=== PATIENT | male | born 1945 | race Caucasian/White ===

== ENCOUNTER 2021-08-05 07:24 | Inpatient (IN) | payer MEDICARE ==
[2021-08-05] MEDS ORDERED: Cefepime 2 GM VIAL ONE (07:56)
[2021-08-05] MEDS ORDERED: Ondansetron PF 4 MG/2 ML Vial ONE (07:59)
[2021-08-05 08:12] LABS: #Basophils 0.1 thou/uL (0.0-0.2); #Eosinphils 0.1 thou/uL (0.0-0.7); #Lymphocytes 1.7 thou/uL (1.20-3.40); #Monocytes 2.1 thou/uL (0.11-0.59); #Neutrophils 14.7 thou/uL (1.40-6.50); %Basophils 0.4 % (0.0-1.0); %Eosinophils 0.7 % (0.0-10.0); %Lymphocytes 9.1 % (21.0-51.0); %Neutrophils 78.9 % (42.0-75.0); Hemoglobin 16.1 g/dL (14.0-18.0); Mean Corpuscular HGB CONC 30.9 g/dL (32.0-36.0); Mean Platelet Volume 8.8 fL (7.4-10.4); Platelet Count 420 thou/uL (130-400); Red Blood Cell (RBC) Count 5.22 mill/uL (4.70-6.10); White Blood Cell (WBC) Count 18.6 thou/uL (4.8-10.8)
[2021-08-05 08:35] LABS: INR-International Normal Ratio 1.4; PTT 28.7 sec (22.9-36.1); Prothrombin Time 16.9 sec (12.0-14.7)
[2021-08-05 08:39] LABS: ALT (SGPT) 10 U/L (8-55); AST (SGOT) 18 U/L (5-34); Albumin 3.5 g/dL (3.4-4.8); Alkaline Phosphatase 135 U/L (40-110); BUN (Urea Nitrogen) 27 mg/dL (8.4-25.7); Bilirubin, Total 0.2 mg/dL (0.2-1.2); Calc. Creatinine Clearance 0 mL/min (70-130); Calcium 9.9 mg/dL (7.8-10.44); Carbon Dioxide Less than 8 mmol/L (23-31); Chloride 95 mmol/L (98-107); Glucose 915 mg/dL (83-110); Lipase 33 U/L (8-78); Magnesium 2.7 mg/dL (1.6-2.6); Protein, Total 7.5 g/dL (5.8-8.1); Sodium 129 mmol/L (136-145)
[2021-08-05 09:01] LABS: CKMB 13.2 ng/mL (0-6.6)
[2021-08-05 09:02] LABS: Analyzer IN Cardio ER; Calcium, Ionized (venous) 1.23 mmol/L (1.16-1.32); Chloride (VBG) 99 mmol/L (98-106); Hemoglobin (Hb) 16.4 g/dL (12.6-17.4); Potassium (VBG) 5.47 mmol/L (3.70-5.30); Sodium 133.8 mmol/L (133-146)
[2021-08-05] MEDS ORDERED: Insulin Regular 300 UNITS/3 ML VIAL ONE (09:02)
[2021-08-05] MEDS ORDERED: INSULIN REGULAR IN 0.9 % NACL 100 UNIT/100 ML BAG ONE (09:02)
[2021-08-05] MEDS ORDERED: Vancomycin 1 GM/200 ML BAG ONE (09:02)
[2021-08-05 09:03] LABS: Actual Bicarbonate (HCO3v) 3 mEq/L (22-28); Base Excess -31.1 mEq/L (-2.0 to +3.0); pH (venous) 6.79 (7.32-7.43)
[2021-08-05 09:10] LABS: Bacteria/HPF None Seen HPF (None Seen); Bilirubin Negative (Negative); Blood, Urine 1+ (Negative); Clarity Clear (Clear); Glucose, Urine (Dipstick) Greater than 1000 mg/dL (Negative); Ketone, Urine Greater than 150 mg/dL (Negative); Leukocyte Negative Leu/uL (Negative); Nitrite Negative (Negative); Protein, Urine (Dipstick) 30 mg/dL (Neg-Trace); RBC/HPF None Seen HPF (0-3); Specific Gravity, Urine 1.024 (1.002-1.036); Squamous Epithelial None Seen HPF (0-3); Urobilinogen Normal mg/dL (Less than 2); WBC/HPF 0-3 HPF (0-3); pH, Urine 5.5 (5.0-9.0)
[2021-08-05] MEDS ORDERED: Sodium Bicarb 50 MEQ/50 ML Abboject 8.4% SYRINGE ONE (09:13)
[2021-08-05 10:00] LABS: SARS-CoV-2 NAA Rapid Test Not Detected (NotDetected)
[2021-08-05] MEDS ORDERED: Sodium Bicarbonate 150 MEQ in Sterile Water Injection 1,000 ML IV SCH ×2 (11:00→19:00)
[2021-08-05 11:14] LABS: Lactic Acid 3.4 mmol/L (0.5-2.2)
[2021-08-05] MEDS ORDERED: Dextrose 5% in Water 1,000 ML IV PRN (11:30)
[2021-08-05] MEDS ORDERED: NS 0.9% w/ 20 MEQ KCL 1,000 ML/1,000 ML BAG IV PRN (11:30)
[2021-08-05] MEDS ORDERED: Sodium Chloride 0.9% 1,000 ML IV PRN ×4 (11:30)
[2021-08-05] MEDS ORDERED: Insulin Regular 300 UNITS/3 ML VIAL IVP SCH (11:30)
[2021-08-05] MEDS ORDERED: Dextrose 5 %-0.45 % NaCl 1,000 ML IV PRN (11:30)
[2021-08-05] MEDS ORDERED: Dextrose 50% Abboject 50 ML SYRINGE SLOW IVP PRN (11:30)
[2021-08-05] MEDS ORDERED: HUMULIN R 100 UNITS in Sodium Chloride 0.9% 99 ML IVPB SCH (11:30)
[2021-08-05] MEDS ORDERED: D5 1/2 NS w/20 mEq KCL 1,000 ML IV PRN (11:30)
[2021-08-05 13:47] LABS: Magnesium 2.6 mg/dL (1.6-2.6); Phosphorus 8.8 mg/dL (2.3-4.7)
[2021-08-05] MEDS: Sodium Chloride 0.9% 1,000 ML IV SCH ×2 (13:59→19:14)
[2021-08-05 14:23] LABS: BUN (Urea Nitrogen) 30 mg/dL (8.4-25.7); Calc. Creatinine Clearance 0 mL/min (70-130); Calcium 10.2 mg/dL (7.8-10.44); Chloride 103 mmol/L (98-107); Sodium 137 mmol/L (136-145)
[2021-08-05 14:52] LABS: Carbon Dioxide Less than 8 mmol/L (23-31); Glucose 885 mg/dL (83-110)
[2021-08-05 16:13] LABS: BUN (Urea Nitrogen) 33 mg/dL (8.4-25.7); Calc. Creatinine Clearance 42 mL/min (70-130); Chloride 103 mmol/L (98-107); Potassium 3.9 mmol/L (3.5-5.1); Sodium 137 mmol/L (136-145)
[2021-08-05] MEDS: NS 0.9% w/ 20 MEQ KCL 1,000 ML/1,000 ML BAG IV PRN ×2 (16:25→21:53)
[2021-08-05 16:39] LABS: CKMB 27.9 ng/mL (0-6.6)
[2021-08-05] MEDS ORDERED: Enoxaparin Sodium 40 MG/0.4 ML SYRINGE SC SCH (16:45)
[2021-08-05] MEDS ORDERED: Aspirin 300 MG Suppository PR SCH (16:45)
[2021-08-05] MEDS ORDERED: Pantoprazole 40 MG VIAL IVP SCH (17:00)
[2021-08-05 17:13] LABS: Carbon Dioxide Less than 8 mmol/L (23-31); Glucose 715 mg/dL (83-110)
[2021-08-05 18:38] LABS: Anion Gap 29 mmol/L (10-20); BUN (Urea Nitrogen) 33 mg/dL (8.4-25.7); Calc. Creatinine Clearance 43 mL/min (70-130); Calcium 8.9 mg/dL (7.8-10.44); Chloride 106 mmol/L (98-107); Potassium 3.5 mmol/L (3.5-5.1); Sodium 139 mmol/L (136-145)
[2021-08-05 18:44] LABS: Carbon Dioxide 8 mmol/L (23-31); Glucose 579 mg/dL (83-110)
[2021-08-05 19:08] LABS: Actual Bicarbonate (HCO3a) 7.2 mEq/L (22-28); Base Excess (BEa) -17.7 mEq/L (-2.0 to +3.0); Calcium, Ionized (arterial) 1.35 mmol/L (1.12-1.30); Carboxyhemoglobin (COHb) 0.1 gm% (0.0-3.0); O2 Tension (PaO2), arterial 93.8 mmHg (> 70.0); Potassium - ABG Lab 3.51 mmol/L (3.70-5.30)
[2021-08-05 19:09] LABS: pH, Arterial 7.24 (7.35-7.45)
[2021-08-05 19:10] LABS: ALV-art Gradient 34.555 mmHg (0-20); CO2 Tension 17.1 mmHg (35.0-45.0); Puncture Site RRA
[2021-08-05] MEDS ORDERED: Sodium Chloride 0.9% 1,000 ML IV SCH (19:30)
[2021-08-05 20:30] LABS: Anion Gap 20 mmol/L (10-20); BUN (Urea Nitrogen) 33 mg/dL (8.4-25.7); Calc. Creatinine Clearance 45 mL/min (70-130); Calcium 9.1 mg/dL (7.8-10.44); Carbon Dioxide 11 mmol/L (23-31); Chloride 111 mmol/L (98-107); Glucose 467 mg/dL (83-110); Potassium 3.4 mmol/L (3.5-5.1); Sodium 139 mmol/L (136-145)
[2021-08-05] MEDS ORDERED: Ondansetron PF 4 MG/2 ML Vial IVP PRN (21:09)
[2021-08-05] MEDS ORDERED: Acetaminophen 325 MG TAB PO PRN (21:09)
[2021-08-06 01:31] LABS: Anion Gap 13 mmol/L (10-20); BUN (Urea Nitrogen) 34 mg/dL (8.4-25.7); Calc. Creatinine Clearance 52 mL/min (70-130); Calcium 9.3 mg/dL (7.8-10.44); Carbon Dioxide 15 mmol/L (23-31); Chloride 116 mmol/L (98-107); Glucose 260 mg/dL (83-110); Potassium 3.2 mmol/L (3.5-5.1); Sodium 141 mmol/L (136-145)
[2021-08-06] MEDS ORDERED: Potassium Chloride 20 MEQ TAB PO SCH (02:30)
[2021-08-06] MEDS: Potassium Chloride 10 MEQ in Premix Bag 1 BAG IVPB SCH ×4 (02:34→05:13)
[2021-08-06] MEDS ORDERED: Sodium Bicarbonate 150 MEQ in Sterile Water Injection 1,000 ML IV PRN (05:00)
[2021-08-06 05:02] LABS: Anion Gap 15 mmol/L (10-20); BUN (Urea Nitrogen) 32 mg/dL (8.4-25.7); Calc. Creatinine Clearance 58 mL/min (70-130); Calcium 8.9 mg/dL (7.8-10.44); Carbon Dioxide 13 mmol/L (23-31); Chloride 116 mmol/L (98-107); Glucose 283 mg/dL (83-110); Potassium 3.7 mmol/L (3.5-5.1); Sodium 140 mmol/L (136-145)
[2021-08-06 05:40] LABS: Anion Gap 15 mmol/L (10-20); BUN (Urea Nitrogen) 32 mg/dL (8.4-25.7); Calc. Creatinine Clearance 58 mL/min (70-130); Calcium 9.1 mg/dL (7.8-10.44); Carbon Dioxide 14 mmol/L (23-31); Chloride 116 mmol/L (98-107); Glucose 335 mg/dL (83-110); Potassium 3.8 mmol/L (3.5-5.1); Sodium 141 mmol/L (136-145)
[2021-08-06] MEDS: NS 0.9% w/ 20 MEQ KCL 1,000 ML IV SCH ×3 (06:00→19:20)
[2021-08-06 07:07] LABS: Actual Bicarbonate (HCO3a) 8.8 mEq/L (22-28); Base Excess (BEa) -17.4 mEq/L (-2.0 to +3.0); Calcium, Ionized (arterial) 1.38 mmol/L (1.12-1.30); Carboxyhemoglobin (COHb) 0.4 gm% (0.0-3.0); Hemoglobin (Hb) 15.4 g/dL (14.0-18.0); O2 Tension (PaO2), arterial 84.2 mmHg (> 70.0); Potassium - ABG Lab 4.33 mmol/L (3.70-5.30)
[2021-08-06 07:59] LABS: pH, Arterial 7.19 (7.35-7.45)
[2021-08-06 08:00] LABS: ALV-art Gradient 36.405 mmHg (0-20); CO2 Tension 23.3 mmHg (35.0-45.0); Puncture Site LBA
[2021-08-06] MEDS ORDERED: FLU VACC QS2021-22(65YR UP)/PF 240 MCG/0.7 ML SYRINGE IM ONE (09:00)
[2021-08-06] MEDS ORDERED: Magnesium 2 GM/50 ML 2 GM in Premix Bag 1 BAG IVPB SCH (09:15)
[2021-08-06] MEDS ORDERED: D5 1/2 NS w/20 mEq KCL 1,000 ML IV PRN (09:45)
[2021-08-06] MEDS ORDERED: ADD ELECTROLYTE REPLACEMENT SET TO PROFILE FS SCH (09:45)
[2021-08-06] MEDS ORDERED: Dextrose 50% Abboject 50 ML SYRINGE SLOW IVP PRN (09:45)
[2021-08-06] MEDS ORDERED: Dextrose 5 %-0.45 % NaCl 1,000 ML IV PRN (09:45)
[2021-08-06] MEDS ORDERED: Dextrose 5% in Water 1,000 ML IV PRN (09:45)
[2021-08-06] MEDS: Enoxaparin Sodium 40 MG/0.4 ML SYRINGE SC SCH (10:47)
[2021-08-06] MEDS: Pantoprazole 40 MG VIAL IVP SCH (10:47)
[2021-08-06 12:07] LABS: Anion Gap 20 mmol/L (10-20); BUN (Urea Nitrogen) 31 mg/dL (8.4-25.7); Calc. Creatinine Clearance 54 mL/min (70-130); Calcium 9.7 mg/dL (7.8-10.44); Carbon Dioxide 10 mmol/L (23-31); Chloride 118 mmol/L (98-107); Glucose 406 mg/dL (83-110); Potassium 3.9 mmol/L (3.5-5.1); Sodium 144 mmol/L (136-145)
[2021-08-06] MEDS: HUMULIN R 100 UNITS in Sodium Chloride 0.9% 100 ML IVPB SCH (12:18)
[2021-08-06 12:21] LABS: Critical Call Chem Troponin I RESULT DECREASING; Troponin I 1.492 ng/mL (< 0.028)
[2021-08-06] MEDS: Sodium Bicarbonate 150 MEQ in Sterile Water Injection 1,000 ML IV PRN ×2 (12:45→20:35)
[2021-08-06 13:03] LABS: Potassium 3.9 mmol/L (3.5-5.1)
[2021-08-06] MEDS: Vancomycin HCl 750 MG in Sodium Chloride 0.9% 250 ML 250 ML IVPB SCH (13:28)
[2021-08-06 15:12] LABS: ALV-art Gradient 45.005 mmHg (0-20); Actual Bicarbonate (HCO3a) 11.9 mEq/L (22-28); Base Excess (BEa) -12.9 mEq/L (-2.0 to +3.0); CO2 Tension 25.3 mmHg (35.0-45.0); Calcium, Ionized (arterial) 1.37 mmol/L (1.12-1.30); Hemoglobin (Hb) 12.8 g/dL (14.0-18.0); O2 Tension (PaO2), arterial 73.1 mmHg (> 70.0); Potassium - ABG Lab 3.18 mmol/L (3.70-5.30); Puncture Site RRA; pH, Arterial 7.29 (7.35-7.45)
[2021-08-06 16:56] LABS: Anion Gap 17 mmol/L (10-20); BUN (Urea Nitrogen) 28 mg/dL (8.4-25.7); Calc. Creatinine Clearance 62 mL/min (70-130); Calcium 9.7 mg/dL (7.8-10.44); Carbon Dioxide 10 mmol/L (23-31); Chloride 122 mmol/L (98-107); Glucose 232 mg/dL (83-110); Potassium 3.7 mmol/L (3.5-5.1); Sodium 145 mmol/L (136-145)
[2021-08-06 19:22] LABS: Anion Gap 14 mmol/L (10-20); BUN (Urea Nitrogen) 26 mg/dL (8.4-25.7); Calc. Creatinine Clearance 71 mL/min (70-130); Carbon Dioxide 14 mmol/L (23-31); Chloride 123 mmol/L (98-107); Glucose 138 mg/dL (83-110); Potassium 3.9 mmol/L (3.5-5.1); Sodium 147 mmol/L (136-145)
[2021-08-06] MEDS ORDERED: Nystatin Powder 15 GM BOT TOP PRN (19:47)
[2021-08-06] MEDS: Amlodipine 5 MG TAB PO SCH (20:35)
[2021-08-06] MEDS: Cefepime 1 GM in Sodium Chloride 0.9% 100 ML IVPB SCH (21:31)
[2021-08-07] MEDS: Vancomycin HCl 750 MG in Sodium Chloride 0.9% 250 ML 250 ML IVPB SCH ×2 (01:03→13:42)
[2021-08-07] MEDS: HUMULIN R 100 UNITS in Sodium Chloride 0.9% 100 ML IVPB SCH (01:06)
[2021-08-07] MEDS: NS 0.9% w/ 20 MEQ KCL 1,000 ML IV SCH ×4 (01:37→19:29)
[2021-08-07 08:36] LABS: Actual Bicarbonate (HCO3v) 17 mEq/L (22-28); Base Excess -5.5 mEq/L (-2.0 to +3.0); Calcium, Ionized (venous) 1.14 mmol/L (1.16-1.32); Chloride (VBG) 110 mmol/L (98-106); Hemoglobin (Hb) 12.1 g/dL (12.6-17.4); Potassium (VBG) 3.07 mmol/L (3.70-5.30); Sodium 139.9 mmol/L (133-146); pH (venous) 7.45 (7.32-7.43)
[2021-08-07 08:47] LABS: #Lymphocytes 1.5 thou/uL (1.20-3.40); #Monocytes 0.9 thou/uL (0.11-0.59); #Neutrophils 5.8 thou/uL (1.40-6.50); %Basophils 0.6 % (0.0-1.0); %Eosinophils 0.2 % (0.0-10.0); %Lymphocytes 18.3 % (21.0-51.0); %Monocytes 10.6 % (0.0-10.0); %Neutrophils 70.3 % (42.0-75.0); Hemoglobin 11.6 g/dL (14.0-18.0); Mean Corpuscular HGB CONC 34.9 g/dL (32.0-36.0); Mean Corpuscular Hemoglobin 31.5 pg (27.0-31.0); Mean Corpuscular Volume 90.2 fL (78.0-98.0); Mean Platelet Volume 8.1 fL (7.4-10.4); Platelet Count 253 thou/uL (130-400); RBC Distribution Width 14.1 % (11.5-14.5); Red Blood Cell (RBC) Count 3.69 mill/uL (4.70-6.10); White Blood Cell (WBC) Count 8.2 thou/uL (4.8-10.8)
[2021-08-07] MEDS ORDERED: Lantus 1000 UNITS/10 ML VIAL SC SCH (09:00)
[2021-08-07 09:24] LABS: ALT (SGPT) 7 U/L (8-55); AST (SGOT) 15 U/L (5-34); Albumin 2.6 g/dL (3.4-4.8); Alkaline Phosphatase 74 U/L (40-110); Anion Gap 16 mmol/L (10-20); BUN (Urea Nitrogen) 21 mg/dL (8.4-25.7); Bilirubin, Total 0.4 mg/dL (0.2-1.2); Calc. Creatinine Clearance 87 mL/min (70-130); Calcium 8.7 mg/dL (7.8-10.44); Carbon Dioxide 18 mmol/L (23-31); Chloride 111 mmol/L (98-107); Globulin 2.6 g/dL (2.4-3.5); Glucose 197 mg/dL (83-110); Potassium 3.1 mmol/L (3.5-5.1); Protein, Total 5.2 g/dL (5.8-8.1); Sodium 142 mmol/L (136-145)
[2021-08-07] MEDS: Pantoprazole 40 MG VIAL IVP SCH (09:54)
[2021-08-07] MEDS: Enoxaparin Sodium 40 MG/0.4 ML SYRINGE SC SCH (09:54)
[2021-08-07] MEDS: Amlodipine 5 MG TAB PO SCH ×2 (09:54→21:36)
[2021-08-07] MEDS: Insulin Regular 300 UNITS/3 ML VIAL SC PRN ×5 (12:37→21:42)
[2021-08-07] MEDS ORDERED: Electrolyte Replacement Protocol FS PRN (14:00)
[2021-08-07] MEDS ORDERED: Potassium Bicarbonate/Cit Ac 20 MEQ TAB PO SCH (14:15)
[2021-08-07] MEDS: Lantus 1000 UNITS/10 ML VIAL SC SCH (21:39)
[2021-08-08] MEDS: Vancomycin HCl 750 MG in Sodium Chloride 0.9% 250 ML 250 ML IVPB SCH (00:06)
[2021-08-08] MEDS: Insulin Regular 300 UNITS/3 ML VIAL SC PRN ×4 (00:21→16:28)
[2021-08-08] MEDS: NS 0.9% w/ 20 MEQ KCL 1,000 ML IV SCH ×2 (01:28→08:24)
[2021-08-08 04:34] LABS: #Lymphocytes 2.2 thou/uL (1.20-3.40); #Monocytes 0.7 thou/uL (0.11-0.59); #Neutrophils 3.8 thou/uL (1.40-6.50); %Basophils 0.3 % (0.0-1.0); %Eosinophils 0.2 % (0.0-10.0); %Lymphocytes 32.6 % (21.0-51.0); %Monocytes 10.6 % (0.0-10.0); %Neutrophils 56.3 % (42.0-75.0); Hemoglobin 11.4 g/dL (14.0-18.0); Mean Corpuscular HGB CONC 35.7 g/dL (32.0-36.0); Mean Corpuscular Hemoglobin 32.2 pg (27.0-31.0); Platelet Count 232 thou/uL (130-400); RBC Distribution Width 13.9 % (11.5-14.5); Red Blood Cell (RBC) Count 3.55 mill/uL (4.70-6.10); White Blood Cell (WBC) Count 6.8 thou/uL (4.8-10.8)
[2021-08-08 04:55] LABS: Anion Gap 11 mmol/L (10-20); BUN (Urea Nitrogen) 14 mg/dL (8.4-25.7); Calc. Creatinine Clearance 111 mL/min (70-130); Calcium 8.6 mg/dL (7.8-10.44); Carbon Dioxide 24 mmol/L (23-31); Chloride 106 mmol/L (98-107); Glucose 161 mg/dL (83-110); Potassium 3.1 mmol/L (3.5-5.1); Sodium 138 mmol/L (136-145)
[2021-08-08] MEDS ORDERED: Potassium Bicarbonate/Cit Ac 20 MEQ TAB PO SCH (07:00)
[2021-08-08] MEDS: Enoxaparin Sodium 40 MG/0.4 ML SYRINGE SC SCH (08:24)
[2021-08-08] MEDS: Amlodipine 5 MG TAB PO SCH ×2 (08:24→20:42)
[2021-08-08] MEDS: Pantoprazole 40 MG VIAL IVP SCH (08:24)
[2021-08-08] MEDS: Lantus 1000 UNITS/10 ML VIAL SC SCH ×2 (08:25→20:42)
[2021-08-08] MEDS: Cefepime 1 GM in Sodium Chloride 0.9% 100 ML IVPB SCH (08:32)
[2021-08-08 13:56] VITALS: BMI 34.5
[2021-08-09 05:26] LABS: #Eosinphils 0.1 thou/uL (0.0-0.7); #Lymphocytes 1.9 thou/uL (1.20-3.40); #Monocytes 0.6 thou/uL (0.11-0.59); #Neutrophils 3.9 thou/uL (1.40-6.50); %Basophils 0.3 % (0.0-1.0); %Eosinophils 0.9 % (0.0-10.0); %Lymphocytes 28.8 % (21.0-51.0); %Monocytes 9.8 % (0.0-10.0); %Neutrophils 60.2 % (42.0-75.0); Hemoglobin 11.8 g/dL (14.0-18.0); Mean Corpuscular HGB CONC 34.9 g/dL (32.0-36.0); Mean Corpuscular Hemoglobin 31.7 pg (27.0-31.0); Mean Corpuscular Volume 90.9 fL (78.0-98.0); Mean Platelet Volume 8.2 fL (7.4-10.4); Platelet Count 230 thou/uL (130-400); RBC Distribution Width 13.9 % (11.5-14.5); Red Blood Cell (RBC) Count 3.72 mill/uL (4.70-6.10); White Blood Cell (WBC) Count 6.5 thou/uL (4.8-10.8)
[2021-08-09] MEDS: Insulin Regular 300 UNITS/3 ML VIAL SC PRN ×2 (05:48→11:34)
[2021-08-09 05:52] LABS: Anion Gap 12 mmol/L (10-20); BUN (Urea Nitrogen) 11 mg/dL (8.4-25.7); Calc. Creatinine Clearance 122 mL/min (70-130); Calcium 8.6 mg/dL (7.8-10.44); Carbon Dioxide 26 mmol/L (23-31); Chloride 103 mmol/L (98-107); Glucose 184 mg/dL (83-110); Potassium 3.1 mmol/L (3.5-5.1); Sodium 138 mmol/L (136-145)
[2021-08-09] MEDS: Lantus 1000 UNITS/10 ML VIAL SC SCH (09:02)
[2021-08-09] MEDS: Pantoprazole 40 MG VIAL IVP SCH (09:03)
[2021-08-09] MEDS: Amlodipine 5 MG TAB PO SCH (09:03)
[2021-08-09] MEDS: Enoxaparin Sodium 40 MG/0.4 ML SYRINGE SC SCH (09:03)
[2021-08-09] MEDS: Potassium Bicarbonate/Cit Ac 20 MEQ TAB PO SCH ×2 (09:03→11:34)
[2021-08-09 09:31] LABS: Hemoglobin A1c Greater than 14.0 % (4.0-6.0)
[2021-08-09 12:19] VITALS: TEMP 98.6
[2021-08-09 15:29] VITALS: BP 134/72
[2021-08-09] MEDS ORDERED: metFORMIN 500 MG TAB PO SCH (17:00)
== END 2021-08-09 17:15 | disposition home or self-care (01) | DRG 637 ==
LOC: ERS 07:24 → CCU 10:27 → 2NO 08-08 17:29
PROVIDERS: ADMIT Internal Medicine; ATTEND Internal Medicine
DX: E10.10 Type 1 diabetes mellitus with ketoacidosis without coma (principal); G93.41 Metabolic encephalopathy; E87.1 Hypo-osmolality and hyponatremia; N17.9 Acute kidney failure, unspecified; I47.2 Ventricular tachycardia; Z20.822 Contact with and (suspected) exposure to COVID-19; E78.00 Pure hypercholesterolemia, unspecified; I10 Essential (primary) hypertension; E86.0 Dehydration; E78.5 Hyperlipidemia, unspecified; K20.90 Esophagitis, unspecified without bleeding; Z79.899 Other long term (current) drug therapy; Z79.84 Long term (current) use of oral hypoglycemic drugs; Z79.4 Long term (current) use of insulin; Z79.82 Long term (current) use of aspirin; Z91.14 Patient's other noncompliance with medication regimen
CPT/HCPCS: 36415; 36416; 36600; 51702; 70450; 71045; 72125; 80048; 80053; 80202; 81003; 81015; 82010; 82553; 82805; 83036; 83605; 83690; 83735; 83880; 83930; 84100; 84443; 84484; 85025; 85610; 85730; 87040; 87086; 93005; 93010; 93306; 96365; 96366; 96367; 96375; 96376; 99292; A4217; C9113; J0692; J1650; J1815; J2405; J3370; J3475; J3480; J3490; J7050; U0002

== ENCOUNTER 2021-08-17 11:04 | Inpatient (IN) | payer MEDICARE ==
[2021-08-17 11:37] LABS: #Lymphocytes 1.4 thou/uL (1.20-3.40); #Monocytes 0.4 thou/uL (0.11-0.59); #Neutrophils 4.3 thou/uL (1.40-6.50); %Basophils 0.3 % (0.0-1.0); %Eosinophils 0.3 % (0.0-10.0); %Lymphocytes 23.4 % (21.0-51.0); %Monocytes 5.9 % (0.0-10.0); %Neutrophils 70.1 % (42.0-75.0); Hemoglobin 13.9 g/dL (14.0-18.0); Mean Corpuscular HGB CONC 33.1 g/dL (32.0-36.0); Mean Corpuscular Volume 90.7 fL (78.0-98.0); Mean Platelet Volume 6.9 fL (7.4-10.4); Platelet Count 354 thou/uL (130-400); RBC Distribution Width 13.6 % (11.5-14.5); Red Blood Cell (RBC) Count 4.64 mill/uL (4.70-6.10); White Blood Cell (WBC) Count 6.2 thou/uL (4.8-10.8)
[2021-08-17 12:00] LABS: ALT (SGPT) 27 U/L (8-55); AST (SGOT) 41 U/L (5-34); Albumin 3.3 g/dL (3.4-4.8); Alkaline Phosphatase 78 U/L (40-110); Anion Gap 20 mmol/L (10-20); BUN (Urea Nitrogen) 7 mg/dL (8.4-25.7); Bilirubin, Total 1.1 mg/dL (0.2-1.2); Calc. Creatinine Clearance 0 mL/min (70-130); Carbon Dioxide 25 mmol/L (23-31); Chloride 93 mmol/L (98-107); Globulin 3.2 g/dL (2.4-3.5); Glucose 204 mg/dL (83-110); Protein, Total 6.5 g/dL (5.8-8.1); Sodium 135 mmol/L (136-145)
[2021-08-17 12:22] LABS: CKMB 0.5 ng/mL (0-6.6)
[2021-08-17] MEDS ORDERED: Cefepime 1 GM VIAL ONE (13:05)
[2021-08-17] MEDS ORDERED: Vancomycin 1 GM/200 ML BAG ONE (14:08)
[2021-08-17 15:13] LABS: Lactic Acid 1.9 mmol/L (0.5-2.2)
[2021-08-17 16:35] LABS: Troponin I 0.047 ng/mL (< 0.028)
[2021-08-17 18:58] LABS: Troponin I 0.043 ng/mL (< 0.028)
[2021-08-17] MEDS ORDERED: Acetaminophen 650 MG Suppository PR PRN (20:36)
[2021-08-17] MEDS ORDERED: Dextrose 50% Abboject 50 ML SYRINGE SLOW IVP PRN (20:36)
[2021-08-17] MEDS ORDERED: Ondansetron ODT 4 MG TAB PO PRN (20:36)
[2021-08-17] MEDS ORDERED: Acetaminophen 325 MG TAB PO PRN (20:36)
[2021-08-17] MEDS ORDERED: Ondansetron PF 4 MG/2 ML Vial IVP PRN (20:36)
[2021-08-17] MEDS ORDERED: Dextrose 5% in Water 1,000 ML IV PRN (20:36)
[2021-08-17] MEDS ORDERED: Potassium Bicarbonate/Cit Ac 25 MEQ TAB ONE (21:35)
[2021-08-17] MEDS: Sodium Chloride 0.9% 1,000 ML IV SCH (21:53)
[2021-08-17] MEDS: Potassium Chloride 20 MEQ TAB PO SCH ×2 (21:54→23:38)
[2021-08-17 23:13] LABS: Magnesium 1.6 mg/dL (1.6-2.6)
[2021-08-17] MEDS ORDERED: Potassium Chloride 20 MEQ TAB ONE ×2 (23:36)
[2021-08-18 02:21] VITALS: BMI 33.7
[2021-08-18 06:40] LABS: #Basophils 0.1 thou/uL (0.0-0.2); #Lymphocytes 1.9 thou/uL (1.20-3.40); #Monocytes 0.3 thou/uL (0.11-0.59); %Basophils 1.9 % (0.0-1.0); %Eosinophils 0.3 % (0.0-10.0); %Monocytes 6.9 % (0.0-10.0); %Neutrophils 46.9 % (42.0-75.0); Hemoglobin 11.4 g/dL (14.0-18.0); Mean Corpuscular HGB CONC 32.5 g/dL (32.0-36.0); Mean Corpuscular Hemoglobin 29.7 pg (27.0-31.0); Mean Corpuscular Volume 91.4 fL (78.0-98.0); Mean Platelet Volume 7.1 fL (7.4-10.4); Platelet Count 322 thou/uL (130-400); RBC Distribution Width 13.6 % (11.5-14.5); Red Blood Cell (RBC) Count 3.83 mill/uL (4.70-6.10); White Blood Cell (WBC) Count 4.3 thou/uL (4.8-10.8)
[2021-08-18 06:56] LABS: Anion Gap 13 mmol/L (10-20); BUN (Urea Nitrogen) 8 mg/dL (8.4-25.7); Calc. Creatinine Clearance 111 mL/min (70-130); Calcium 7.4 mg/dL (7.8-10.44); Carbon Dioxide 29 mmol/L (23-31); Chloride 96 mmol/L (98-107); Glucose 215 mg/dL (83-110); Sodium 135 mmol/L (136-145)
[2021-08-18 07:00] LABS: Potassium 2.9 mmol/L (3.5-5.1)
[2021-08-18] MEDS ORDERED: Cholecalciferol (Vitamin D3) 400 UNITS TAB PO SCH (09:00)
[2021-08-18] MEDS ORDERED: Ascorbic Acid 500 mg Chewable Tablet PO SCH (09:00)
[2021-08-18] MEDS ORDERED: Zinc Sulfate 220 MG CAP PO SCH (09:00)
[2021-08-18] MEDS: Sodium Chloride 0.9% 1,000 ML IV SCH (09:14)
[2021-08-18 09:22] LABS: Bacteria/HPF None Seen HPF (None Seen); Bilirubin Negative (Negative); Blood, Urine Negative (Negative); Clarity Clear (Clear); Glucose, Urine (Dipstick) 200 mg/dL (Negative); Ketone, Urine Negative (Negative); Leukocyte Negative Leu/uL (Negative); Nitrite Negative (Negative); Protein, Urine (Dipstick) 10 mg/dL (Neg-Trace); RBC/HPF 0-3 HPF (0-3); Specific Gravity, Urine 1.009 (1.002-1.036); Squamous Epithelial 0-3 HPF (0-3); Urobilinogen Normal mg/dL (Less than 2); WBC/HPF 0-3 HPF (0-3)
[2021-08-18 09:32] LABS: Yeast-Budding 1+ HPF (None Seen)
[2021-08-18] MEDS ORDERED: Zinc Sulfate 220 MG CAP ONE (11:44)
[2021-08-18] MEDS ORDERED: Ascorbic Acid 500 mg Chewable Tablet ONE (11:44)
[2021-08-18] MEDS ORDERED: Potassium Chloride 20 MEQ TAB ONE (11:44)
[2021-08-18] MEDS: Potassium Chloride 20 MEQ TAB PO SCH ×2 (11:44→12:19)
[2021-08-18] MEDS ORDERED: Enoxaparin Sodium 40 MG/0.4 ML SYRINGE ONE (11:46)
[2021-08-18] MEDS: Enoxaparin Sodium 40 MG/0.4 ML SYRINGE SC SCH (11:50)
[2021-08-18] MEDS ORDERED: Magnesium 2 GM/50 ML 2 GM in Premix Bag 1 BAG IVPB SCH (12:00)
[2021-08-18] MEDS ORDERED: Electrolyte Replacement Protocol 1 EACH FS PRN (12:00)
[2021-08-18] MEDS ORDERED: Cepastat Lozenges 1 LOZ PO PRN (12:03)
[2021-08-18] MEDS ORDERED: Guaifenesin DM 100-10/5 ML UDCUP PO PRN (12:15)
[2021-08-18] MEDS ORDERED: Magnesium 2 GM/50 ML BAG (IN WATER) ONE (13:17)
[2021-08-18] MEDS ORDERED: metroNIDAZOLE 500 MG TAB PO SCH (15:00)
[2021-08-18] MEDS ORDERED: Vancomycin 1 GM in Premix Bag 1 BAG IVPB SCH ×2 (16:00→21:00)
[2021-08-18] MEDS ORDERED: Nystatin Powder 15 GM BOT TOP PRN (16:13)
[2021-08-18 16:48] LABS: Anion Gap 15 mmol/L (10-20); BUN (Urea Nitrogen) 6 mg/dL (8.4-25.7); Calc. Creatinine Clearance 126 mL/min (70-130); Calcium 7.2 mg/dL (7.8-10.44); Carbon Dioxide 22 mmol/L (23-31); Chloride 102 mmol/L (98-107); Glucose 197 mg/dL (83-110); Potassium 3.5 mmol/L (3.5-5.1); Sodium 135 mmol/L (136-145)
[2021-08-18] MEDS ORDERED: Vancomycin 1 GM/200 ML BAG ONE (16:57)
[2021-08-18] MEDS ORDERED: Cefepime 1 GM in Sodium Chloride 0.9% 100 ML IVPB SCH ×2 (17:00→21:00)
[2021-08-18] MEDS ORDERED: HumaLOG 300 UNITS/3 ML VIAL ONE (17:18)
[2021-08-18] MEDS: HumaLOG 300 UNITS/3 ML VIAL SC PRN ×2 (17:20→21:29)
[2021-08-18 19:56] LABS: SARS-CoV-2 NAA Rapid Test DETECTED (NotDetected)
[2021-08-18] MEDS: Famotidine 20 MG TAB PO SCH (21:28)
[2021-08-18] MEDS: Amlodipine 5 MG TAB PO SCH (21:28)
[2021-08-18] MEDS: Lantus 1000 UNITS/10 ML VIAL SC SCH (21:30)
[2021-08-19] MEDS ORDERED: Cefepime 2 GM in Sodium Chloride 0.9% 100 ML IVPB SCH (04:00)
[2021-08-19] MEDS ORDERED: Vancomycin 1.5 GRAM/300 ML BAG 1.5 GM in Premix Bag 1 BAG IVPB SCH (05:00)
[2021-08-19] MEDS ORDERED: Potassium Chloride 20 MEQ TAB PO SCH ×2 (06:30→08:45)
[2021-08-19 08:25] LABS: #Eosinphils 0.1 thou/uL (0.0-0.7); #Lymphocytes 1.9 thou/uL (1.20-3.40); #Monocytes 0.4 thou/uL (0.11-0.59); #Neutrophils 3.1 thou/uL (1.40-6.50); %Basophils 0.4 % (0.0-1.0); %Eosinophils 1.3 % (0.0-10.0); %Monocytes 6.8 % (0.0-10.0); %Neutrophils 56.5 % (42.0-75.0); Hemoglobin 10.9 g/dL (14.0-18.0); Mean Corpuscular Hemoglobin 30.3 pg (27.0-31.0); Platelet Count 311 thou/uL (130-400); RBC Distribution Width 13.5 % (11.5-14.5); White Blood Cell (WBC) Count 5.4 thou/uL (4.8-10.8)
[2021-08-19 08:35] LABS: Anion Gap 16 mmol/L (10-20); BUN (Urea Nitrogen) 4 mg/dL (8.4-25.7); Calc. Creatinine Clearance 123 mL/min (70-130); Calcium 7.5 mg/dL (7.8-10.44); Carbon Dioxide 23 mmol/L (23-31); Chloride 101 mmol/L (98-107); Glucose 181 mg/dL (83-110); Magnesium 1.7 mg/dL (1.6-2.6); Potassium 3.2 mmol/L (3.5-5.1); Sodium 137 mmol/L (136-145)
[2021-08-19] MEDS: Ascorbic Acid 500 mg Chewable Tablet PO SCH (08:39)
[2021-08-19] MEDS: Famotidine 20 MG TAB PO SCH ×2 (08:39→21:51)
[2021-08-19] MEDS: Cholecalciferol 1,000 UNITS (25 MCG) TAB PO SCH (08:40)
[2021-08-19] MEDS: Enoxaparin Sodium 40 MG/0.4 ML SYRINGE SC SCH (08:40)
[2021-08-19] MEDS: Zinc Sulfate 220 MG CAP PO SCH (08:40)
[2021-08-19] MEDS: Lantus 1000 UNITS/10 ML VIAL SC SCH ×2 (08:42→21:52)
[2021-08-19] MEDS ORDERED: Aspirin 81 mg Enteric Coated Tablet PO SCH (09:00)
[2021-08-19] MEDS: Amlodipine 5 MG TAB PO SCH ×2 (09:09→21:51)
[2021-08-19] MEDS ORDERED: Magnesium 2 GM/50 ML 2 GM in Premix Bag 1 BAG IVPB SCH (09:15)
[2021-08-19] MEDS ORDERED: Cefepime 1 GM in Sodium Chloride 0.9% 100 ML IVPB SCH (15:00)
[2021-08-19] MEDS: metFORMIN 500 MG TAB PO SCH (17:19)
[2021-08-19] MEDS: HumaLOG 300 UNITS/3 ML VIAL SC PRN ×2 (18:03→21:52)
[2021-08-19] MEDS: DOBUTamine 500 mg/250 ml 250 ML IVPB SCH (18:39)
[2021-08-20] MEDS: HumaLOG 300 UNITS/3 ML VIAL SC PRN ×4 (07:35→20:53)
[2021-08-20] MEDS: metFORMIN 500 MG TAB PO SCH ×2 (08:42→17:48)
[2021-08-20] MEDS: Aspirin 325 MG TAB PO SCH (08:42)
[2021-08-20] MEDS: Zinc Sulfate 220 MG CAP PO SCH (08:43)
[2021-08-20] MEDS: Enoxaparin Sodium 40 MG/0.4 ML SYRINGE SC SCH (08:43)
[2021-08-20] MEDS: Amlodipine 5 MG TAB PO SCH ×2 (08:43→20:55)
[2021-08-20] MEDS: Ascorbic Acid 500 mg Chewable Tablet PO SCH (08:43)
[2021-08-20] MEDS: Cholecalciferol 1,000 UNITS (25 MCG) TAB PO SCH (08:43)
[2021-08-20] MEDS: Famotidine 20 MG TAB PO SCH ×2 (08:44→20:54)
[2021-08-20] MEDS: DOBUTamine 500 mg/250 ml 250 ML IVPB SCH (11:14)
[2021-08-20] MEDS: Lantus 1000 UNITS/10 ML VIAL SC SCH ×2 (14:49→20:54)
[2021-08-20] MEDS: Atorvastatin Calcium 40 MG TAB PO SCH (20:55)
[2021-08-21] MEDS: DOBUTamine 500 mg/250 ml 250 ML IVPB SCH (01:54)
[2021-08-21] MEDS: Amlodipine 5 MG TAB PO SCH ×2 (08:15→20:10)
[2021-08-21] MEDS: metFORMIN 500 MG TAB PO SCH ×2 (08:15→16:10)
[2021-08-21] MEDS: Aspirin 325 MG TAB PO SCH (08:18)
[2021-08-21] MEDS: Ascorbic Acid 500 mg Chewable Tablet PO SCH (08:18)
[2021-08-21] MEDS: Cholecalciferol 1,000 UNITS (25 MCG) TAB PO SCH (08:19)
[2021-08-21] MEDS: Famotidine 20 MG TAB PO SCH ×2 (08:20→20:09)
[2021-08-21] MEDS: Enoxaparin Sodium 40 MG/0.4 ML SYRINGE SC SCH (08:20)
[2021-08-21] MEDS: Zinc Sulfate 220 MG CAP PO SCH (08:20)
[2021-08-21] MEDS: Lantus 1000 UNITS/10 ML VIAL SC SCH ×2 (08:20→20:12)
[2021-08-21] MEDS ORDERED: DOBUTamine 500 mg/250 ml 250 ML IVPB SCH (08:35)
[2021-08-21] MEDS: HumaLOG 300 UNITS/3 ML VIAL SC PRN ×2 (13:21→18:36)
[2021-08-21] MEDS: Atorvastatin Calcium 40 MG TAB PO SCH (20:10)
[2021-08-22] MEDS: Enoxaparin Sodium 40 MG/0.4 ML SYRINGE SC SCH (08:03)
[2021-08-22] MEDS: Cholecalciferol 1,000 UNITS (25 MCG) TAB PO SCH (08:03)
[2021-08-22] MEDS: metFORMIN 500 MG TAB PO SCH ×2 (08:03→16:23)
[2021-08-22] MEDS: Ascorbic Acid 500 mg Chewable Tablet PO SCH (08:03)
[2021-08-22] MEDS: Aspirin 325 MG TAB PO SCH (08:04)
[2021-08-22] MEDS: Famotidine 20 MG TAB PO SCH ×2 (08:04→21:06)
[2021-08-22] MEDS: Amlodipine 5 MG TAB PO SCH ×2 (08:04→21:06)
[2021-08-22] MEDS: Zinc Sulfate 220 MG CAP PO SCH (08:04)
[2021-08-22] MEDS: Lantus 1000 UNITS/10 ML VIAL SC SCH ×2 (08:05→21:08)
[2021-08-22] MEDS: HumaLOG 300 UNITS/3 ML VIAL SC PRN ×2 (11:47→18:18)
[2021-08-22] MEDS: Atorvastatin Calcium 40 MG TAB PO SCH (21:06)
[2021-08-23] MEDS: Lantus 1000 UNITS/10 ML VIAL SC SCH (09:38)
[2021-08-23] MEDS: Cholecalciferol 1,000 UNITS (25 MCG) TAB PO SCH (09:39)
[2021-08-23] MEDS: Enoxaparin Sodium 40 MG/0.4 ML SYRINGE SC SCH (09:39)
[2021-08-23] MEDS: Ascorbic Acid 500 mg Chewable Tablet PO SCH (09:39)
[2021-08-23] MEDS: Famotidine 20 MG TAB PO SCH (09:39)
[2021-08-23] MEDS: Aspirin 325 MG TAB PO SCH (09:39)
[2021-08-23] MEDS: Zinc Sulfate 220 MG CAP PO SCH (09:39)
[2021-08-23] MEDS: metFORMIN 500 MG TAB PO SCH (09:39)
[2021-08-23] MEDS: Amlodipine 5 MG TAB PO SCH (09:40)
[2021-08-23 12:07] VITALS: BP 108/57; TEMP 98.2
== END 2021-08-23 14:34 | disposition home or self-care (01) | DRG 177 ==
LOC: ERS 11:04 → ERHOLD 15:08 → 2SW 08-18 19:25
PROVIDERS: ADMIT Family Medicine; ATTEND Internal Medicine
PROC: 8E0ZXY6 Isolation (ICD-10-PCS; principal; 2021-08-17)
DX: U07.1 COVID-19 (principal); J96.01 Acute respiratory failure with hypoxia; I21.A1 Myocardial infarction type 2; J12.82 Pneumonia due to coronavirus disease 2019; E87.1 Hypo-osmolality and hyponatremia; N17.9 Acute kidney failure, unspecified; E87.6 Hypokalemia; E88.09 Other disorders of plasma-protein metabolism, not elsewhere classified; E78.5 Hyperlipidemia, unspecified; E78.00 Pure hypercholesterolemia, unspecified; I08.1 Rheumatic disorders of both mitral and tricuspid valves; I44.1 Atrioventricular block, second degree; R00.1 Bradycardia, unspecified; E83.42 Hypomagnesemia; Z79.899 Other long term (current) drug therapy; Z79.82 Long term (current) use of aspirin; Z79.4 Long term (current) use of insulin; Z79.84 Long term (current) use of oral hypoglycemic drugs; Z91.19 Patient's noncompliance with other medical treatment and regimen
CPT/HCPCS: 36415; 36416; 71045; 80048; 80053; 81001; 82553; 82728; 83605; 83735; 84484; 85025; 85379; 86140; 87040; 87086; 87149; 93005; 93010; 93306; 96365; 96367; J0692; J1250; J1650; J1815; J3370; J3475; J7050; U0002